=== PATIENT | male | born 1975 | race Two or more races ===

== ENCOUNTER 2023-01-05 10:32 | Emergency (ER) | payer MEDICAID, OTHER ==
[~2023-01-05] VITALS: Ht 165.1 cm; Wt 68.0 kg
[2023-01-05] MEDS ORDERED: KETOROLAC TROMETH 60MG/2ML VIAL IM ONE (10:45)
[2023-01-05 10:55] VITALS: BP 96/61; PULSE 88; RESP 18; TEMP 96.8; O2SAT 95
[2023-01-05] MEDS ORDERED: HYDROcodone-ACET 10/325MG TAB PO ONE (11:45)
[2023-01-05] MEDS ORDERED: HYDR-4798 PO ×2 (12:17)
[2023-01-05] MEDS ORDERED: IBUP-1455 PO (12:17)
[2023-01-05] MEDS ORDERED: PERCOT PO (12:19)
== END 2023-01-05 12:32 | disposition home or self-care (01) ==
LOC: EDBD → ER 10:32
DX: S52.501A Unspecified fracture of the lower end of right radius, initial encounter for closed fracture (principal); S52.601A Unspecified fracture of lower end of right ulna, initial encounter for closed fracture; S22.42XA Multiple fractures of ribs, left side, initial encounter for closed fracture; Y93.89 Activity, other specified; W11.XXXA Fall on and from ladder, initial encounter; Y92.89 Other specified places as the place of occurrence of the external cause; Y99.8 Other external cause status
CPT/HCPCS: 29125; 71111; 73110; 96372; 99284; J1885